=== PATIENT | male | born 1960 | race Caucasian/White ===

== ENCOUNTER 2018-09-10 05:36 | Day surgery (SDC) | payer BC ==
--- NOTE | 2018-09-08 16:38 | RAD ---
EXAM DESCRIPTION: Chest,2 Views CLINICAL HISTORY: 58 years Male, PRE OP COMPARISON: None. IMPRESSION: Heart size and pulmonary vascularity are within normal limits. The lungs are hyperexpanded. There is no airspace consolidation, pleural effusion, or pneumothorax. No acute osseous abnormality. Electronically signed by: Romie Viera MD 09/08/2018 4:37 PM CDT
[~2018-09-10 05:36] MED LIST: fentaNYL CITRATE INJ 50 MCG/ML AMP ONE
[2018-09-10] MEDS ORDERED: METOCLOPRAMIDE HCL INJ 10 MG/2 ML VIAL ONE (07:00)
[2018-09-10] MEDS ORDERED: DEXAMETHASONE INJ 10 MG/ML VIAL ONE (07:00)
[2018-09-10] MEDS ORDERED: PROPOFOL 200 MG/20 ML VIAL IV ONE (07:00)
[2018-09-10] MEDS ORDERED: LIDOCAINE 1% 10 ML VIAL INJ ONE (07:00)
[2018-09-10] MEDS ORDERED: raNITIdine HCL INJ 25 MG/ML VIAL ONE (07:00)
[2018-09-10] MEDS ORDERED: SODIUM CHL 0.9% 100ML MINI-BAG 100 ML IVPB ONE (07:14)
[2018-09-10] MEDS ORDERED: ceFAZolin SODIUM 1 GM VIAL ONE (07:14)
[2018-09-10] MEDS ORDERED: LACTATED RINGERS 1,000 ML ONE (07:14)
[2018-09-10] MEDS ORDERED: LACTATED RINGERS 1,000 ML BAG IV ONE (09:30)
[2018-09-10] MEDS ORDERED: BUPIVACAINE 0.25% W/EPI 50 ML VIAL INJ ONE (10:15)
[2018-09-10] MEDS ORDERED: ACETAMINOPHEN IV 1000MG 100 ML ONE (10:27)
[2018-09-10] MEDS ORDERED: fentaNYL CITRATE INJ 50 MCG/ML AMP ONE (10:28)
[2018-09-10] MEDS ORDERED: MIDAZOLAM INJ 2 MG/2 ML VIAL ONE (10:28)
[2018-09-10] MEDS ORDERED: KETAMINE HCL 100 MG/ML VIAL ONE (10:58)
[2018-09-10 12:43] VITALS: O2SAT 99
[2018-09-10] MEDS ORDERED: HYDROcodone 5MG/APAP 325MG 1 EA TAB ONE (12:57)
[2018-09-10 14:07] VITALS: BP 119/78; TEMP 97.9
--- NOTE | 2018-09-11 13:56 | OP ---
DATE OF PROCEDURE: 09/10/18 PREOPERATIVE DIAGNOSIS: 1. Reducible left inguinal hernia. 2. Subcutaneous mass, left shoulder. POSTOPERATIVE DIAGNOSIS: 1. Reducible left inguinal hernia. 2. Subcutaneous mass, left shoulder. PROCEDURE: 1. Repair of reducible left inguinal hernia. 2. Excision of subcutaneous mass, left shoulder. SURGEON: Yung Sullivan MD. WARP WORKER: None. ANESTHESIA: General laryngeal anesthesia and local infiltration of 0.25% Marcaine with epinephrine. INDICATION: The patient is a 58-year-old male who after lifting developed a tender mass in his left groin. It is reducible and consistent with a hernia. The patient was brought to the Surgical [facility] today for hernia repair after the risks, benefits and alternatives to the procedure were discussed and accepted. He has also had a longstanding mass on the left shoulder which has grown and he decided to have this removed at the same time. FINDINGS: There was a direct inguinal hernia with no sliding component. There was no indirect hernia identified with exploration of the cord. The subcutaneous mass on the left shoulder measured approximately 4.5 cm in greatest diameter. PROCEDURE: After adequate general laryngeal mask anesthesia was obtained, the patient was prepped and draped in the usual sterile manner. At this point, a surgical time-out was taken. The left lower quadrant was infiltrated with local anesthesia. An oblique incision was made with a sharp knife. Dissection was carried down through the skin and subcutaneous tissue to the external oblique fascia using electrocautery. A self-retaining retractor was placed. The external oblique fascia was then opened in the direction of the fibers through the external ring. When this was done, the self-retaining retractor was placed at this level after the external oblique fascia was dissected free from the floor of the canal. When this was done, the nerve was dissected free from the cord using blunt dissection and electrocautery. The cord was then dissected free from the floor of the canal. A half inch [place] drain was placed around it for traction. The direct hernia sac was identified medial to the cord. This was dissected free using blunt dissection and electrocautery. It was then elevated and incised at the level of the floor of the canal using electrocautery. It was then reduced below the floor of the canal. At this point, a Surgimesh patch was introduced under the floor of the canal and sutured circumferentially with interrupted 2-0 Vicryl sutures. When this was done, the wound was irrigated with saline. The Surgimesh patch was then fashioned and sutured to the floor of the canal around the cord in the usual manner with interrupted 2-0 Vicryl sutures. Again, the wound was irrigated with saline. The cord and nerve were then placed back in the canal. The external oblique fascia was then closed with running 3-0 Vicryl suture. The cord and subcutaneous tissue above, below and lateral to the incision were infiltrated with local anesthesia. The Rashad's fascia was reapproximated with interrupted 3-0 Chromic suture. Skin edges were approximated with skin stapler. Testicle was checked for position in the scrotum. Sterile pressure dressing was applied. At this point, new gloves were obtained by the surgeon. The left shoulder was prepped and draped with towels. Local infiltration of anesthesia was obtained and oblique incision was fashioned with a sharp knife. Dissection was carried down through the skin and subcutaneous tissue using electrocautery. The mass was identified. It was then dissected free bluntly and with electrocautery and removed from the field. It was then sent for pathological evaluation. The wound was irrigated with saline. Hemostasis was noted to be adequate. The subcutaneous tissues were reapproximated with interrupted 3-0 Vicryl sutures and the skin edges were approximated with skin stapler. Sterile pressure dressing was applied. The patient was awakened and taken to the Recovery Room in stable condition. Estimated blood loss was less than 50 mL for both procedures. #[id number] [facility]
== END 2018-09-10 13:40 | disposition home or self-care (01) ==
LOC: AMB 05:36
PROVIDERS: ATTEND Surgery
DX: K40.90 Unilateral inguinal hernia, without obstruction or gangrene, not specified as recurrent (principal); D17.22 Benign lipomatous neoplasm of skin and subcutaneous tissue of left arm; F41.9 Anxiety disorder, unspecified; J45.909 Unspecified asthma, uncomplicated; K59.00 Constipation, unspecified; Z87.891 Personal history of nicotine dependence; Z88.6 Allergy status to analgesic agent; Z88.5 Allergy status to narcotic agent; Z91.010 Allergy to peanuts; Z88.0 Allergy status to penicillin; Z88.8 Allergy status to other drugs, medicaments and biological substances; Z91.018 Allergy to other foods; Z79.899 Other long term (current) drug therapy
CPT/HCPCS: 00830; 23071; 36415; 49505; 71046; 80053; 81001; 85025; 87086; 93005; C1781; J0690; J1100; J2250; J2765; J2780; J3010; J3490; J7050; J7120

== ENCOUNTER 2020-07-01 10:38 | Emergency (ER) | payer SELFPAY ==
--- NOTE | 2020-07-01 10:40 | ED.PDOC ---
History of Present Illness - General Time Seen by Provider: 07/01/20 10:39 Source: patient - History of Present Illness Initial Comments: 59-year-old male who presents with chief complaint of right hand pain following injury at home just prior to arrival. Patient was using a drill with his right hand when the drill got stuck in the wood and twisted in his hand while holding it, causing sudden supination injury to the right hand. He reports pain prim arily to the dorsal aspect of the right hand over the fourth metacarpal bone, radiates into fourth digit, constant, throbbing, moderate severity at rest, worsens sharply with palpation of the area or range of motion of the fourth digit. No medications taken for relief. He believes that may be some deformity of the fourth knuckle. Denies any weakness or numbness or color change. Allergies/Adverse Reactions: Allergies Aspirin Allergy (Verified 07/01/20 10:57) Penicillins Allergy (Verified 07/01/20 10:57) Home Medications: Ambulatory Orders Albuterol Sulfate [Ventolin Hfa] 1 - 2 inhaler INH Q4H PRN 07/01/20 Buspirone HCl [Buspirone Hydrochloride] 10 mg PO TID 07/01/20 Review of Systems - Review of Systems Review of Systems: 07/01/20 11:00 as per HPI All other Systems: Reviewed and Negative Past Medical History (General) - Patient Medical History Hx Congestive Heart Failure: No Hx Diabetes: No Hx MRSA: Yes MRSA Source:: Wound Family Medical History - Family History Mother Living Status: Hx Family Cancer: Yes - Breast Physical Exam - Physical Exam General Appearance: Alert, Comfortable, No apparent distress Eyes, Ears, Nose, Throat Exam: normal ENT inspection Neck: full range of motion, normal inspection Cardiovascular/Respiratory: regular rate, rhythm, no M/R/G, normal peripheral pulses, normal breath sounds, no respiratory distress Abdominal Exam: non-tender Back Exam: normal inspection Shoulder Exam: normal inspection Elbow/Forearm Exam: normal inspection Wrist Exam: normal inspection, non-tender, no evidence of injury, normal ROM Hand Exam: normal inspection, bone tenderness - moderate to dorsal aspect of right hand over shaft of 4th metacarpal bone, no clear deformities noted, limited ROM - moderately limited ROM of 4th digit R hand due to pain Neuro/Tendon: normal sensation, normal motor functions, normal tendon functions, responds to pain, no evidence tendon injury Mental Status: alert, oriented x 3 Skin Exam: normal color, warm/dry Progress - Progress Progress: 07/01/20 11:02 Acute right hand injury -consider R hand fracture, R hand strain/sprain, osteoarthritis, other -obtain XR imaging R hand -cold compress, Tylenol for pain 07/01/20 11:23 -XR imaging of R hand reveals minimally displaced 4th metacarpal shaft fracture per my read. No other acute processes noted. Will place in ulnar gutter splint and dc to home. F/u with orthopedic surgery in 5-[address] Salinas (ortho) notified who agrees with plan. Nate Cedillo MD Billing #[id number] Procedures - Splinting Right Arm Hand-Made Type: orthoglass Splint: ulnar - gutter splint Pre-Proc Neuro Vasc Exam: normal Post-Proc Neuro Vasc Exam: normal Departure - Departure Clinical Impression: Fracture of metacarpal shaft of right hand, closed Qualifiers: Encounter type: initial encounter Metacarpal bone: fourth Fracture alignment: nondisplaced Qualified Code(s): S62.354A - Nondisplaced fracture of shaft of fourth metacarpal bone, right hand, initial encounter for closed fracture Time of Disposition: 11:21 Disposition: Discharge to Home or Self Care Condition: Good Instructions: Finger Sprain (DC) Diet: resume usual diet Activity: increase activity as tolerated Referrals: Nicolás Caicedo MD [Primary Care Provider] - 1-2 Weeks Moisés Salinas MD [Active Staff] - 1 Week Home Medications: Ambulatory Orders Albuterol Sulfate [Ventolin Hfa] 1 - 2 inhaler INH Q4H PRN 07/01/20 Buspirone HCl [Buspirone Hydrochloride] 10 mg PO TID 07/01/20 Additional Instructions: Keep the splint in place and follow up with orthopedic surgery in the next 5-7 days for repeat evaluation and XR imaging. You may continue to apply a cold compress to the affected area for 15 to 20 minutes every 1-2 hours for the next 2 to 3 days to help limit pain and swelling. You may also take apax-ogx-noibcly medications as needed for pain such as Tylenol 650 milligrams every 6 hours as needed.
[2020-07-01] MEDS ORDERED: ACETAMINOPHEN 325 MG TAB PO ONE (10:57)
--- NOTE | 2020-07-01 11:27 | RAD ---
EXAM: Hand,Right 3 Views CLINICAL INDICATION: Right hand pain COMPARISON: There is no previous study for comparison. FINDINGS: 3 views of the right hand reveal a fracture of the fourth metacarpal diaphysis with 2 mm displacement. No other fracture or dislocation is identified. IMPRESSION: Fracture of the right fourth metacarpal. Electronically signed by: Gene Melendez MD 07/01/2020 11:26 AM CDT
[2020-07-01 11:49] VITALS: BP 143/82; TEMP 97.8; O2SAT 96
== END 2020-07-01 11:47 | disposition home or self-care (01) ==
LOC: ER 10:38
DX: S62.354A Nondisplaced fracture of shaft of fourth metacarpal bone, right hand, initial encounter for closed fracture (principal); Z88.6 Allergy status to analgesic agent; Z88.0 Allergy status to penicillin; X50.9XXA Other and unspecified overexertion or strenuous movements or postures, initial encounter; Y93.89 Activity, other specified; Y92.009 Unspecified place in unspecified non-institutional (private) residence as the place of occurrence of the external cause

== ENCOUNTER → 2020-07-21 | Outpatient (CLI) | payer SELFPAY ==
--- NOTE | 2020-07-21 16:32 | RAD ---
EXAM DESCRIPTION: Hand,Right 3 Views CLINICAL HISTORY: FRACTURE OF SHAFT OF METACARPAL BONE RIGHT COMPARISON: Previous x-ray right hand July 07, 2020 TECHNIQUE: AP, LATERAL, AND OBLIQUE FINDINGS: Three-view right hand shows oblique or spiral fracture of the diaphysis of the fourth metacarpal. No definite periosteal new bone formation or bridging callus. No change in alignment compared to the previous study. The gap at the fracture site best seen on lateral view is unchanged. Deformity of the distal aspect of the middle phalanx of the fifth finger is likely related to old trauma. Subchondral cyst in the head of the first metacarpal with mild degenerative changes at the interphalangeal joint of the thumb. Small periarticular erosions or cysts at the DIP joints. These findings could be seen with gout, pseudogout or erosive osteoarthrosis. IMPRESSION: Fractured right fourth metacarpal with no change of alignment. Electronically signed by: Sander Addison MD 07/21/2020 4:30 PM CDT
== END ==
LOC: RAD 08:30
PROVIDERS: ATTEND Orthopaedic Surgery
DX: S62.324D Displaced fracture of shaft of fourth metacarpal bone, right hand, subsequent encounter for fracture with routine healing (principal)

== ENCOUNTER → 2020-08-21 | Outpatient (CLI) | payer SELFPAY ==
--- NOTE | 2020-08-21 10:54 | RAD ---
EXAM DESCRIPTION: Hand,Right 3 Views CLINICAL HISTORY: 60 years Male, CLOSED FRACTURE OF METACARPAL BONE RIGHT COMPARISON: None. Findings: 3 view(s)/radiograph(s) Healing right fourth metacarpal fracture. No new fracture identified. Similar alignment. No dislocation. Similar degenerative changes. IMPRESSION: Healing right fourth metacarpal fracture. Electronically signed by: Michael Uribe MD 08/21/2020 10:52 AM CDT
== END ==
LOC: RAD 08:29
PROVIDERS: ATTEND Orthopaedic Surgery
DX: S62.304D Unspecified fracture of fourth metacarpal bone, right hand, subsequent encounter for fracture with routine healing (principal)